=== PATIENT | male | born 1960 | race Caucasian/White ===

== ENCOUNTER 2017-02-18 11:31 | Emergency (ER) | payer MEDICARE, OTHER ==
[~2017-02-18] VITALS: Ht 172.7 cm; Wt 90.0 kg
[~2017-02-18 11:31] MED LIST: AMOX1TAB16 PO; ASPI81 PO; CLON.1 PO; FELO5ER PO; FOLI1 PO; GLIP5 PO; METO50 PO; MINO2.5 PO
[2017-02-18 11:44] LABS: GLUCOSE,POINT OF CARE 206 MG/DL (70-110)
[2017-02-18] MEDS ORDERED: CEPHALEXIN MONOHYDRATE 500 MG CAPSULE PO ONE (13:15)
[2017-02-18] MEDS ORDERED: PERTUSS(ACELL),DIPH,TET VAC/PF 0.5 ML VIAL IM ONE (13:15)
[2017-02-18 13:21] VITALS: BP 138/85
== END 2017-02-18 13:45 | disposition home or self-care (01) ==
LOC: EMS 11:33
DX: S91.115A Laceration without foreign body of left lesser toe(s) without damage to nail, initial encounter (principal); E11.65 Type 2 diabetes mellitus with hyperglycemia; I12.0 Hypertensive chronic kidney disease with stage 5 chronic kidney disease or end stage renal disease; E11.22 Type 2 diabetes mellitus with diabetic chronic kidney disease; N18.6 End stage renal disease; Z99.2 Dependence on renal dialysis; Z87.891 Personal history of nicotine dependence; W22.8XXA Striking against or struck by other objects, initial encounter; Y93.89 Activity, other specified; Y92.89 Other specified places as the place of occurrence of the external cause; Y99.9 Unspecified external cause status
CPT/HCPCS: 82962; 90471; 90715; 99283